=== PATIENT | female | born 1995 | race Caucasian/White ===

== ENCOUNTER 2018-10-25 11:58 | Emergency (ER) | payer OTHER ==
[2018-10-25 14:45] LABS: ADD MAN DIFF? NO
[2018-10-25 14:53] LABS: WHITE BLOOD COUNT 9.4 10^3/ul (4.8-10.8)
[2018-10-25 14:53] LABS: BASOPHIL # 0.1 10^3/ul (0.0-0.1); BASOPHILS % 0.8 % (0.0-2.0); EOSINOPHILS # 0.3 10^3/ul (0.0-0.5); EOSINOPHILS % 2.7 % (0.0-7.0); HEMATOCRIT 35.5 % (37.0-47.0); LYMPHOCYTES # 2.2 10^3/ul (0.8-2.9); LYMPHOCYTES % 22.9 % (15.0-51.0); MEAN CORPUSCULAR HEMOGLOBIN 30.1 pg (29.0-33.0); MEAN CORPUSCULAR HGB CONC 33.8 g/dl (32.0-37.0); MEAN PLATELET VOLUME 10.6 fl (7.4-10.4); MONOCYTE # 0.5 10^3/ul (0.3-0.9); MONOCYTES % 5.5 % (0.0-11.0); NEUTROPHIL # 6.4 10^3/ul (1.6-7.5); NEUTROPHILS % 67.8 % (39.0-77.0); PLATELET COUNT 197 10^3/UL (140-415); RED BLOOD COUNT 3.99 10^6/ul (4.20-5.40); RED CELL DISTRIBUTION WIDTH 13.2 % (11.5-14.5)
[2018-10-25 15:11] LABS: ADD UMIC NO; UR ASCORBIC ACID 20 mg/dL (NEGATIVE); UR BACTERIA FEW /HPF (NONE SEEN); UR BILIRUBIN (Dip) NEGATIVE (NEGATIVE); UR BLOOD (Dip) NEGATIVE (NEGATIVE); UR CLARITY SLIGHTLY CLOUDY (CLEAR); UR COLOR YELLOW (YELLOW); UR GLUCOSE (Dip) NEGATIVE (NEGATIVE); UR KETONES (Dip) NEGATIVE (NEGATIVE); UR LEUKOCYTE ESTERASE (Dip) NEGATIVE Leu/ul (NEGATIVE); UR NITRITE (Dip) NEGATIVE (NEGATIVE); UR RBC 1 /HPF (0-5); UR SPECIFIC GRAVITY (Dip) 1.015 (1.003-1.030); UR SQUAMOUS EPITHELIAL CELL MODERATE /HPF (FEW); UR TOTAL PROTEIN (Dip) NEGATIVE (NEGATIVE); UR UROBILINOGEN (Dip) NEGATIVE (NEGATIVE); UR WBC 1 /HPF (0-5)
== END 2018-10-25 16:34 | disposition home or self-care (01) ==
LOC: FTE 11:58
DX: O20.9 Hemorrhage in early pregnancy, unspecified (principal); Z3A.11 11 weeks gestation of pregnancy
CPT/HCPCS: 36415; 76801; 81001; 81003; 84702; 85025; 86900; 86901; 99284-25

== ENCOUNTER 2019-04-24 08:35 | Inpatient (IN) | payer OTHER ==
[2019-04-24] MEDS ORDERED: METHYLERGONOVINE 0.2 MG INJ IM (09:30)
[2019-04-24] MEDS ORDERED: CARBOPROST 250 MCG INJ IM ×2 (09:30→20:00)
[2019-04-24] MEDS ORDERED: BUTORPHANOL 2 MG INJ IV (09:30)
[2019-04-24] MEDS ORDERED: LIDOCAINE 1% (MPF) 30 ML INJ INJ (09:30)
[2019-04-24] MEDS ORDERED: OXYTOCIN 30 UNITS/LR 500 ML IV ×3 (09:30→20:00)
[2019-04-24] MEDS ORDERED: MISOPROSTOL 200 MCG TAB PR ×2 (09:30→20:00)
[2019-04-24 10:17] LABS: ADD MAN DIFF? NO
[2019-04-24 10:20] LABS: BASOPHIL # 0.1 10^3/ul (0.0-0.1); BASOPHILS % 0.7 % (0.0-2.0); EOSINOPHILS # 0.1 10^3/ul (0.0-0.5); EOSINOPHILS % 1.5 % (0.0-7.0); HEMATOCRIT 35.5 % (37.0-47.0); HEMOGLOBIN 11.9 g/dl (12.0-16.0); LYMPHOCYTES # 1.7 10^3/ul (0.8-2.9); LYMPHOCYTES % 19.2 % (15.0-51.0); MEAN CORPUSCULAR HEMOGLOBIN 30.8 pg (29.0-33.0); MEAN CORPUSCULAR HGB CONC 33.5 g/dl (32.0-37.0); MEAN PLATELET VOLUME 11.6 fl (7.4-10.4); MONOCYTE # 0.6 10^3/ul (0.3-0.9); MONOCYTES % 6.5 % (0.0-11.0); NEUTROPHIL # 6.1 10^3/ul (1.6-7.5); NEUTROPHILS % 71.1 % (39.0-77.0); PLATELET COUNT 146 10^3/UL (140-415); RED BLOOD COUNT 3.86 10^6/ul (4.20-5.40); RED CELL DISTRIBUTION WIDTH 13.3 % (11.5-14.5)
[2019-04-24 10:20] LABS: WHITE BLOOD COUNT 8.6 10^3/ul (4.8-10.8)
[2019-04-24] MEDS: LACTATED RINGER'S 1,000 ML IV ×3 (10:21→14:52)
[2019-04-24 10:44] LABS: INR 0.82; PARTIAL THROMBOPLASTIN TIME 24.2 Sec (23.0-35.0); PROTIME 11.4 Sec (11.9-14.9); PT RATIO 0.9
[2019-04-24] MEDS: AMPICILLIN 2 GM/NS (PMX) 100 ML IV (12:02)
[2019-04-24] MEDS ORDERED: FENTAnyl 2MCG/ML-ROPIV 0.2% 100 ML (12:22)
[2019-04-24] MEDS ORDERED: DIPHENHYDRAMINE 50 MG INJ IV ×2 (12:30→20:00)
[2019-04-24] MEDS ORDERED: NALOXONE (0.4 MG/ML) INJ IV (12:30)
[2019-04-24] MEDS ORDERED: ONDANSETRON 4 MG INJ IV ×2 (12:30→20:00)
[2019-04-24] MEDS ORDERED: FENTAnyl 2MCG/ML-ROPIV 0.2% 100 ML BAG EPI (12:30)
[2019-04-24] MEDS: URSODIOL 300 MG CAP PO ×2 (14:07→23:47)
[2019-04-24] MEDS: LACTATED RINGER'S 1,000 ML IV* (15:30)
[2019-04-24] MEDS: AMPICILLIN 1 GM/NS (PMX) 50 ML IV ×3 (16:35→23:16)
[2019-04-24 17:03] LABS: RAPID PLASMA REAGIN NONREACTIVE (NR)
[2019-04-24] MEDS ORDERED: ONDANSETRON 4 MG TAB PO (20:00)
[2019-04-24] MEDS ORDERED: NA PHOSPHATE/BIPHOS 133 ML ENEMA PR (20:00)
[2019-04-24] MEDS ORDERED: SENNA/DOCUSATE NA (8.6MG/50MG) TAB PO (20:00)
[2019-04-24] MEDS ORDERED: DIBUCAINE 1% 30 GM OINT TOP (20:00)
[2019-04-24] MEDS ORDERED: MAGNESIUM HYDROXIDE 30ML CUP PO (20:00)
[2019-04-24] MEDS ORDERED: DIPHENHYDRAMINE 25 MG CAP PO (20:00)
[2019-04-24] MEDS ORDERED: HYDROCODONE/APAP (5/325) TAB PO ×2 (20:00)
[2019-04-24] MEDS: OXYTOCIN 30 UNITS/LR 500 ML IV ×2 (20:08→20:22)
[2019-04-24] MEDS: MINERAL OIL LIGHT 10 ML VIAL TOP (20:49)
[2019-04-24] MEDS: SENNA/DOCUSATE NA (8.6MG/50MG) TAB PO (23:45)
[2019-04-24] MEDS: IBUPROFEN 600 MG TAB PO (23:46)
[2019-04-25] MEDS: OXYTOCIN 30 UNITS/LR 500 ML IV (00:51)
[2019-04-25] MEDS: WITCH HAZEL/GLYCERIN PAD PR (00:52)
[2019-04-25] MEDS: BENZOCAINE 20% 56 ML SPRAY TOP (00:52)
[2019-04-25] MEDS: LANOLIN HPA 1 PKT TOP (00:53)
[2019-04-25] MEDS: AMPICILLIN 1 GM/NS (PMX) 50 ML IV (01:30)
[2019-04-25 05:06] LABS: ADD MAN DIFF? NO
[2019-04-25 05:15] LABS: WHITE BLOOD COUNT 19.4 10^3/ul (4.8-10.8)
[2019-04-25 05:15] LABS: BASOPHIL # 0.1 10^3/ul (0.0-0.1); BASOPHILS % 0.3 % (0.0-2.0); EOSINOPHILS % 0.2 % (0.0-7.0); HEMOGLOBIN 10.4 g/dl (12.0-16.0); LYMPHOCYTES # 1.9 10^3/ul (0.8-2.9); LYMPHOCYTES % 9.5 % (15.0-51.0); MEAN CORPUSCULAR HEMOGLOBIN 30.5 pg (29.0-33.0); MEAN CORPUSCULAR HGB CONC 33.5 g/dl (32.0-37.0); MEAN CORPUSCULAR VOLUME 90.9 fl (82.0-101.0); MEAN PLATELET VOLUME 12.1 fl (7.4-10.4); MONOCYTE # 0.8 10^3/ul (0.3-0.9); MONOCYTES % 4.1 % (0.0-11.0); NEUTROPHIL # 16.5 10^3/ul (1.6-7.5); NEUTROPHILS % 85.2 % (39.0-77.0); PLATELET COUNT 132 10^3/UL (140-415); RED BLOOD COUNT 3.41 10^6/ul (4.20-5.40); RED CELL DISTRIBUTION WIDTH 13.2 % (11.5-14.5)
[2019-04-25] MEDS: IBUPROFEN 600 MG TAB PO ×3 (06:00→18:00)
[2019-04-25 06:10] LABS: HEPATITIS B SURFACE ANTIGEN NEGATIVE (NEGATIVE)
[2019-04-25] MEDS: SENNA/DOCUSATE NA (8.6MG/50MG) TAB PO ×2 (10:09→21:58)
[2019-04-25] MEDS: URSODIOL 300 MG CAP PO ×3 (10:09→21:58)
[2019-04-26 05:28] LABS: ADD MAN DIFF? NO
[2019-04-26 05:38] LABS: WHITE BLOOD COUNT 11.3 10^3/ul (4.8-10.8)
[2019-04-26 05:38] LABS: BASOPHILS % 0.4 % (0.0-2.0); EOSINOPHILS # 0.2 10^3/ul (0.0-0.5); EOSINOPHILS % 1.3 % (0.0-7.0); HEMOGLOBIN 10.6 g/dl (12.0-16.0); LYMPHOCYTES # 2.2 10^3/ul (0.8-2.9); LYMPHOCYTES % 19.2 % (15.0-51.0); MEAN CORPUSCULAR HEMOGLOBIN 30.6 pg (29.0-33.0); MEAN CORPUSCULAR HGB CONC 33.1 g/dl (32.0-37.0); MEAN CORPUSCULAR VOLUME 92.5 fl (82.0-101.0); MEAN PLATELET VOLUME 11.6 fl (7.4-10.4); MONOCYTE # 0.6 10^3/ul (0.3-0.9); MONOCYTES % 5.4 % (0.0-11.0); NEUTROPHIL # 8.2 10^3/ul (1.6-7.5); PLATELET COUNT 159 10^3/UL (140-415); RED BLOOD COUNT 3.46 10^6/ul (4.20-5.40); RED CELL DISTRIBUTION WIDTH 13.8 % (11.5-14.5)
[2019-04-26] MEDS: IBUPROFEN 600 MG TAB PO ×3 (05:54→12:00)
[2019-04-26] MEDS: DIPHTH/TET/ACEL PERTUSS (ADULT) 0.5 ML VIAL IM* (09:00)
[2019-04-26] MEDS: VARICELLA VACCINE LIVE/PF 1,350 UNIT/0.5 ML ML SC* (09:00)
[2019-04-26] MEDS: MEASLES,MUMPS,RUBELLA VACCINE INJ SC* (09:00)
[2019-04-26] MEDS: SENNA/DOCUSATE NA (8.6MG/50MG) TAB PO (11:09)
[2019-04-26] MEDS: URSODIOL 300 MG CAP PO (11:09)
== END 2019-04-26 14:00 | disposition home or self-care (01) | DRG 807 ==
LOC: OBT 08:35 → L-D 08:36 → OBT 09:20 → L-D 09:25 → MS1 22:46
PROVIDERS: Specialist
PROC: 10E0XZZ Delivery of Products of Conception, External Approach (ICD-10-PCS; principal; 2019-04-24)
PROC: 0W8NXZZ Division of Female Perineum, External Approach (ICD-10-PCS; 2019-04-24)
DX: O60.13X0 Preterm labor second trimester with preterm delivery third trimester, not applicable or unspecified (principal); Z37.0 Single live birth; O99.214 Obesity complicating childbirth; Z3A.36 36 weeks gestation of pregnancy
CPT/HCPCS: 62322; 85025; 85610; 85730; 86592; 86850; 86900; 86901; 87340; 90715; 90716; 99464